=== PATIENT | female | born 1985 | race Two or more races ===

== ENCOUNTER → 2023-08-20 | Outpatient (CLI) | payer MEDICAID, OTHER ==
[2023-08-20 12:47] LABS: Eosinophils # (auto) 0.4 10 ^3/uL (0-0.8); Lymphocytes # (auto) 3.6 10 ^3/uL (0.4-5.4); White Blood Cell 12.8 10^3/uL (4.4-10.8)
[2023-08-20 12:49] LABS: Basophils # (auto) 0.2 10 ^3/uL (0-0.2); Basophils % (auto) 1.4 % (0.0-2.0); Eosinophils % (auto) 2.9 % (0.0-7.0); Hematocrit 40.7 % (36.0-46.0); Hemoglobin 13.5 g/dL (12.2-16.2); Lymphocytes % (auto) 28.2 % (10.0-50.0); Mean Corpuscular Hemoglobin 27.5 pg (28.0-32.0); Mean Corpuscular Hgb Conc. 33.1 g/dL (32.0-36.0); Mean Corpuscular Volume 83.3 fL (80.0-100.0); Monocytes # (auto) 0.6 10 ^3/uL (0-1.3); Monocytes % (auto) 4.5 % (0.0-12.0); Red Blood Cells 4.89 10^6/uL (4.0-5.20)
[2023-08-20 13:27] LABS: Amphetamine Screen, Urine Neg (NEGATIVE)
[2023-08-20 13:28] LABS: Benzodiazephine Screen, Urine Neg (NEGATIVE)
[2023-08-20 13:31] LABS: Barbiturate Scree,Urine Neg (NEGATIVE); Cannabinoid Screen, Urine Neg (NEGATIVE); Cocaine Screen, Urine Neg (NEGATIVE); Opiate Scree,Urine Neg (NEGATIVE); Phencyclidine Screen, Urine Neg (NEGATIVE)
[2023-08-20 13:33] LABS: Thyroid Stimulating Hormone 0.94 uIU/mL (0.55-4.78)
[2023-08-21 06:07] LABS: Varicella Zoster IgG Antibody 426 index (Immune >165)
[2023-08-21 08:06] LABS: RPR Non Reactive (Non Reactive)
[2023-08-21 23:07] LABS: Chlamydia Trachomatis, NAA Negative (Negative); Neisseria gonorrhoeae, NAA Negative (Negative)
[2023-08-23 04:06] LABS: QuantiFERON-TB Gold Plus Negative (Negative)
== END | disposition home or self-care (01) ==
LOC: LAB 12:15
PROVIDERS: ATTEND Obstetrics & Gynecology
DX: O09.90 Supervision of high risk pregnancy, unspecified, unspecified trimester (principal); Z3A.00 Weeks of gestation of pregnancy not specified
CPT/HCPCS: 36415; 80307; 81025; 83036; 84439; 84443; 84702; 85025; 86592; 86703; 86762; 86787; 86850; 86900; 86901; 87086; 87340

== ENCOUNTER → 2023-08-25 | Outpatient (CLI) | payer MEDICAID | END | disposition home or self-care (01) | LOC: LAB 11:00 | PROVIDERS: ATTEND Obstetrics & Gynecology | DX: Z34.80 Encounter for supervision of other normal pregnancy, unspecified trimester (principal); Z3A.00 Weeks of gestation of pregnancy not specified | CPT/HCPCS: 36415; 81025; 84702 ==

== ENCOUNTER → 2023-08-27 | Outpatient (CLI) | payer MEDICAID | END | disposition home or self-care (01) | LOC: LAB 09:13 | PROVIDERS: ATTEND Obstetrics & Gynecology | DX: O09.90 Supervision of high risk pregnancy, unspecified, unspecified trimester (principal); Z3A.00 Weeks of gestation of pregnancy not specified | CPT/HCPCS: 82670; 84144 ==

== ENCOUNTER 2024-02-25 08:00 | Observation (INO) | payer MEDICAID ==
[2024-02-25] MEDS ORDERED: PREN-96 PO (08:57)
== END 2024-02-25 09:33 | disposition home or self-care (01) ==
LOC: LDRP 08:00 → UNDOADMOB 08:00 → LDRP 08:18 → UNDODISOB 09:33
PROVIDERS: ADMIT Obstetrics & Gynecology; ATTEND Obstetrics & Gynecology
DX: O36.63X0 Maternal care for excessive fetal growth, third trimester, not applicable or unspecified (principal); O09.523 Supervision of elderly multigravida, third trimester; O34.219 Maternal care for unspecified type scar from previous cesarean delivery; Z3A.33 33 weeks gestation of pregnancy; Z87.891 Personal history of nicotine dependence
CPT/HCPCS: 59025; 76818; 81002; 94760; G0378

== ENCOUNTER 2024-03-02 08:30 | Observation (INO) | payer MEDICAID ==
[~2024-03-02] VITALS: Ht 154.9 cm; Wt 77.1 kg
[~2024-03-02 08:30] MED LIST: PREN-96 PO
== END 2024-03-02 13:28 | disposition home or self-care (01) ==
LOC: UNDOADMOB 12:17 → LDRP 12:17 → UNDODISOB 13:28
PROVIDERS: ADMIT Obstetrics & Gynecology; ATTEND Obstetrics & Gynecology
DX: O36.63X0 Maternal care for excessive fetal growth, third trimester, not applicable or unspecified (principal); O09.523 Supervision of elderly multigravida, third trimester; Z3A.34 34 weeks gestation of pregnancy; Z87.891 Personal history of nicotine dependence
CPT/HCPCS: 59025; 76818; 81002; G0378

== ENCOUNTER 2024-03-09 07:57 | Observation (INO) | payer MEDICAID ==
[~2024-03-09] VITALS: Ht 157.5 cm; Wt 79.4 kg
== END 2024-03-09 11:21 | disposition home or self-care (01) ==
LOC: LDRP 09:10 → UNDOADMOB 09:10 → LDRP 09:45 → UNDODISOB 11:21
PROVIDERS: ADMIT Obstetrics & Gynecology; ATTEND Obstetrics & Gynecology
DX: O09.513 Supervision of elderly primigravida, third trimester (principal); Z3A.35 35 weeks gestation of pregnancy; Z87.891 Personal history of nicotine dependence; Z98.51 Tubal ligation status
CPT/HCPCS: 59025; 76818; 81002; 94760; G0378

== ENCOUNTER 2024-03-16 09:07 | Observation (INO) | payer MEDICAID | END 2024-03-16 10:47 | disposition home or self-care (01) | LOC: UNDOADMOB 09:07 → LDRP 09:07 | PROVIDERS: ADMIT Obstetrics & Gynecology; ATTEND Obstetrics & Gynecology | DX: O09.513 Supervision of elderly primigravida, third trimester (principal); O36.63X0 Maternal care for excessive fetal growth, third trimester, not applicable or unspecified; Z3A.36 36 weeks gestation of pregnancy | CPT/HCPCS: 59025; 76818; 81002; 94760; G0378 ==

== ENCOUNTER 2024-03-23 09:08 | Observation (INO) | payer MEDICAID | END 2024-03-23 11:17 | disposition home or self-care (01) | LOC: LDRP 09:08 | PROVIDERS: ADMIT Obstetrics & Gynecology; ATTEND Obstetrics & Gynecology | DX: O36.63X0 Maternal care for excessive fetal growth, third trimester, not applicable or unspecified (principal); Z3A.37 37 weeks gestation of pregnancy | CPT/HCPCS: 59025; 76818; 81002; 94760; G0378 ==

== ENCOUNTER 2024-03-30 00:25 | Observation (INO) | payer MEDICAID ==
[~2024-03-30] VITALS: Ht 157.5 cm; Wt 80.7 kg
== END 2024-03-30 10:30 | disposition home or self-care (01) ==
LOC: LDRP 09:04 → UNDOADMOB 09:04 → LDRP 09:07 → UNDODISOB 10:30
PROVIDERS: ADMIT Obstetrics & Gynecology; ATTEND Obstetrics & Gynecology
DX: O36.63X0 Maternal care for excessive fetal growth, third trimester, not applicable or unspecified (principal); O09.513 Supervision of elderly primigravida, third trimester; Z3A.38 38 weeks gestation of pregnancy
CPT/HCPCS: 59025; 76818; 81002; 94760; G0378

== ENCOUNTER 2024-04-04 04:50 | Inpatient (IN) | payer MEDICAID ==
[2024-04-02 11:19] LABS: Basophils # (auto) 0 10 ^3/uL (0-0.2); Basophils % (auto) 0.3 % (0.0-2.0); Eosinophils # (auto) 0.2 10 ^3/uL (0-0.8); Eosinophils % (auto) 1.9 % (0.0-7.0); Hematocrit 35.9 % (36.0-46.0); Hemoglobin 11.9 g/dL (12.2-16.2); Lymphocytes # (auto) 2.3 10 ^3/uL (0.4-5.4); Lymphocytes % (auto) 19.8 % (10.0-50.0); Mean Corpuscular Hemoglobin 25.7 pg (28.0-32.0); Mean Corpuscular Volume 77.9 fL (80.0-100.0); Monocytes # (auto) 0.7 10 ^3/uL (0-1.3); Monocytes % (auto) 5.6 % (0.0-12.0); Neutrophils # (auto) 8.5 10 ^3/uL (1.6-8.6); Neutrophils % (auto) 72.4 % (37.0-80.0); Red Blood Cells 4.61 10^6/uL (4.0-5.20); White Blood Cell 11.7 10^3/uL (4.4-10.8)
[2024-04-02 11:24] LABS: Red Cell Distribution Width 20.3 % (11.8-14.3)
[2024-04-02 11:32] LABS: Alanine Aminotransferase 15 U/L (7-40); Albumin 4.2 g/dL (3.2-4.8); Alkaline Phosphatase 105 U/L (46-116); Anion Gap 12 (5-15); Aspartate Aminotransferase 13 U/L (13-40); BUN/Creatinine Ratio 22.2 (10.0-20.0); Bilirubin, Total 0.8 mg/dL (0.2-1.0); Blood Urea Nitrogen 8 mg/dL (9-23); Calcium 9.2 mg/dL (8.7-10.4); Carbon Dioxide 20 mmol/L (20-30); Chloride 104 mmol/L (98-107); Glucose 78 mg/dL (74-106); Potassium 4.1 mmol/L (3.5-5.1); Sodium 136 mmol/L (136-145); Total Protein 6.7 g/dL (5.7-8.2)
[2024-04-02 11:33] LABS: INR 0.99 (0.9-1.15); Partial Thromboplastin Time 26.7 SEC (24.5-34.5); Prothrombin Time 10.5 sec (9.3-11.8)
[2024-04-02 12:22] LABS: Urine Bacteria FEW /hpf (None Seen); Urine Blood Negative /uL (Negative); Urine Clarity Clear (Clear); Urine Color Yellow (Yellow); Urine Mucus FEW (None Seen); Urine Protein, UAD Negative (Negative); Urine Specific Gravity 1.021 (1.001-1.035); Urine Urobilinogen Normal (Negative); Urine WBC <1 /hpf (0 - 5); Urine pH 6.5 (5.0-9.0)
[2024-04-02 12:33] LABS: Amphetamine Screen, Urine Neg (NEGATIVE); Barbiturate Scree,Urine Neg (NEGATIVE); Benzodiazephine Screen, Urine Neg (NEGATIVE); Cocaine Screen, Urine Neg (NEGATIVE)
[2024-04-02 12:34] LABS: Cannabinoid Screen, Urine Neg (NEGATIVE); Opiate Scree,Urine Neg (NEGATIVE); Phencyclidine Screen, Urine Neg (NEGATIVE)
[~2024-04-04] VITALS: Ht 154.9 cm; Wt 80.3 kg
[2024-04-04] VITALS (22 sets, daily range): BP systolic 89–130; BP diastolic 50–80; PULSE 69–100; RESP 16–18; TEMP 98–98.3; O2SAT 91–98
[2024-04-04] MEDS: ONDANSETRON HCL 4 MG/2 ML VIAL IV ONE (05:38)
[2024-04-04] MEDS: LACTATED RINGER'S 1,000 ML IV ONE (05:48)
[2024-04-04] MEDS: LACTATED RINGER'S 1,000 ML IV SCH ×2 (06:16→15:25)
[2024-04-04] MEDS: TETRACAINE 1% INJ 2 ML VIAL IJ ONE (07:27)
[2024-04-04] MEDS: SUCCINYLCHOLINE CHLORIDE 20 MG/ML 10ML VIAL IV ONE (07:28)
[2024-04-04] MEDS: ceFAZolin 2 GM/D5W50ml 50 ML IV ONE (07:28)
[2024-04-04] MEDS ORDERED: MORPHINE SULF PF 5 MG/10 ML VIAL ONE (07:32)
[2024-04-04] MEDS ORDERED: MIDAZOLAM HCL 2MG/2ML 2ml VIAL (1mg/ml) ONE (08:33)
[2024-04-04] MEDS ORDERED: ONDANSETRON HCL 4 MG/2 ML VIAL ONE ×2 (08:53→09:04)
[2024-04-04] MEDS ORDERED: oxyTOCIN 10 UNIT/ML 10ML VIAL ONE (08:53)
[2024-04-04] MEDS ORDERED: ePHEDrine SULFATE 50 MG/ML AMP ONE (08:53)
[2024-04-04] MEDS: SODIUM CITR/CITRIC ACID ORAL SOLN 30 ML PO SCH (09:00)
[2024-04-04] MEDS ORDERED: DexAMETHasone SOD PHOS 10MG/1ML VIAL INJ IV PRN (09:15)
[2024-04-04] MEDS: NALBUPHINE HCL 10 MG/1ml INJECTION SUBCUT ONE (09:15)
[2024-04-04] MEDS ORDERED: NALOXONE HCL 0.4 MG/ML VIAL IV PRN (09:15)
[2024-04-04] MEDS: PROMETHAZINE HCL 6.25 MG/5 ML ORAL SYRUP PO SCH (09:30)
[2024-04-04] MEDS: ONDANSETRON HCL 4 MG/2 ML VIAL IV PRN (09:36)
[2024-04-04] MEDS: HYDROmorphone HCL 2 MG/ML VL/or syr IV PRN (09:56)
[2024-04-04] MEDS: ceFAZolin 1GM/50ML 50 ML IV SCH (15:37)
[2024-04-04] MEDS: diphenhdrAMINE HCL 50 MG/1 ML VL IV PRN (20:04)
[2024-04-04 21:11] LABS: Basophils # (auto) 0 10 ^3/uL (0-0.2); Eosinophils # (auto) 0 10 ^3/uL (0-0.8); Hemoglobin 11.1 g/dL (12.2-16.2); Lymphocytes % (auto) 11.4 % (10.0-50.0); Mean Corpuscular Volume 77.7 fL (80.0-100.0); Monocytes # (auto) 0.9 10 ^3/uL (0-1.3); Neutrophils # (auto) 11.1 10 ^3/uL (1.6-8.6)
[2024-04-04 21:13] LABS: Basophils % (auto) 0.3 % (0.0-2.0); Eosinophils % (auto) 0.1 % (0.0-7.0); Hematocrit 34.6 % (36.0-46.0); Lymphocytes # (auto) 1.5 10 ^3/uL (0.4-5.4); Mean Corpuscular Hgb Conc. 32.2 g/dL (32.0-36.0); Monocytes % (auto) 6.4 % (0.0-12.0); Neutrophils % (auto) 81.8 % (37.0-80.0); Red Blood Cells 4.45 10^6/uL (4.0-5.20); White Blood Cell 13.5 10^3/uL (4.4-10.8)
[2024-04-04 21:26] LABS: Red Cell Distribution Width 20.3 % (11.8-14.3)
[2024-04-04] MEDS: KETOROLAC TROMETH 30 MG/ML 1ML VIAL IV PRN (22:05)
[2024-04-05] VITALS (15 sets, daily range): BP systolic 93–114; BP diastolic 57–72; PULSE 66–95; RESP 15–18; TEMP 97.9–98.6; O2SAT 95–99
[2024-04-05] MEDS: ACETAMINOPHEN IV 1000 MG/100ML (10MG/ML) IV PRN (02:58)
[2024-04-05 04:55] LABS: Basophils # (auto) 0 10 ^3/uL (0-0.2); Eosinophils # (auto) 0.1 10 ^3/uL (0-0.8); Hemoglobin 10.6 g/dL (12.2-16.2); Neutrophils # (auto) 8.1 10 ^3/uL (1.6-8.6)
[2024-04-05 04:57] LABS: Basophils % (auto) 0.4 % (0.0-2.0); Eosinophils % (auto) 0.6 % (0.0-7.0); Hematocrit 31.6 % (36.0-46.0); Mean Corpuscular Hgb Conc. 33.4 g/dL (32.0-36.0); Mean Corpuscular Volume 77.8 fL (80.0-100.0); Monocytes # (auto) 0.9 10 ^3/uL (0-1.3); Monocytes % (auto) 7.9 % (0.0-12.0); Neutrophils % (auto) 73.1 % (37.0-80.0); Red Blood Cells 4.07 10^6/uL (4.0-5.20); White Blood Cell 11.2 10^3/uL (4.4-10.8)
[2024-04-05 05:08] LABS: Red Cell Distribution Width 20.1 % (11.8-14.3)
[2024-04-05] MEDS: DOCUSATE CALCIUM 240 MG CAP PO SCH (08:45)
[2024-04-05] MEDS ORDERED: OXYCODONE W/ ACETAMINOPHEN 5/325MG TABLET PO PRN (08:45)
[2024-04-05] MEDS: DOCUSATE SOD 100 MG CAP PO SCH (08:45)
[2024-04-05] MEDS: OXYCODONE W/ ACETAMINOPHEN 5/325MG TABLET PO PRN (08:46)
[2024-04-05] MEDS: IBUPROFEN 800 MG TAB PO PRN (12:24)
[2024-04-05] MEDS: SIMETHICONE 80 MG CHEWABLE TABLET PO SCH (12:24)
[2024-04-06 02:58] VITALS: BP 99/68; PULSE 85; RESP 18; TEMP 98.7; O2SAT 98
[2024-04-06 07:00] VITALS: BP 114/75; PULSE 83; RESP 18; TEMP 98; O2SAT 96
[2024-04-06] MEDS ORDERED: PERCOT PO (08:21)
[2024-04-06] MEDS ORDERED: IBUP-1455 PO (08:21)
[2024-04-06 11:00] VITALS: BP 105/67; PULSE 86; RESP 18; TEMP 98.1; O2SAT 96
[2024-04-06 15:00] VITALS: BP 121/61; PULSE 93; RESP 18; TEMP 98.2; O2SAT 95
== END 2024-04-06 17:40 | disposition home or self-care (01) | DRG 539 ==
LOC: LDRP 04:50
PROVIDERS: ADMIT Obstetrics & Gynecology; ATTEND Obstetrics & Gynecology
PROC: 0UB70ZZ Excision of Bilateral Fallopian Tubes, Open Approach (ICD-10-PCS; 2024-04-04)
PROC: 10D00Z1 Extraction of Products of Conception, Low, Open Approach (ICD-10-PCS; principal; 2024-04-04 07:38)
DX: O34.211 Maternal care for low transverse scar from previous cesarean delivery (principal); Z30.2 Encounter for sterilization; Z37.0 Single live birth; Z3A.38 38 weeks gestation of pregnancy
CPT/HCPCS: 36415; 59025; 80053; 80307; 81001; 85025; 85610; 85730; 86592; 86703; 86803; 86850; 86900; 86901; 94760; 94762; 96360; 96361; 96365; 96366; 96374; G0378; J0131; J0330; J1885; J2250; J2405; J2590